=== PATIENT | male | born 1970 | race African-American/Black ===

== ENCOUNTER → 2021-06-15 | Day surgery (SDC) | payer OTHER ==
[2021-06-15 14:34] VITALS: BP 144/76
== END | disposition home or self-care (01) ==
LOC: SURG 14:25
PROVIDERS: ATTEND Anesthesiology
DX: M54.12 Radiculopathy, cervical region (principal); M25.511 Pain in right shoulder; I10 Essential (primary) hypertension; E11.9 Type 2 diabetes mellitus without complications; M19.90 Unspecified osteoarthritis, unspecified site; Z79.899 Other long term (current) drug therapy; Z79.84 Long term (current) use of oral hypoglycemic drugs
CPT/HCPCS: 99204; G0463